=== PATIENT | male | born 1980 | race Hispanic/Latino ===

== ENCOUNTER → 2020-01-12 | Day surgery (SDC) | payer OTHER ==
[~2020-01-12] MED LIST: ETOMIDATE 2 MG/ML 10 ML INJ IV ONE; FENTANYL CITRATE/PF 100MCG/2 ML INJ ONE; GLUCAGON FOR INJ 1 MG VIAL ONE; HYOSCYAMINE 0.125 MG TAB ONE; MIDAZOLAM HCL 2 MG/2 ML VIAL ONE; PANTOPRAZOLE 40 MG 10ML VIAL ONE; PROPOFOL IV EMULSION 10 MG/ML 20 ML VIAL ONE
[2020-01-12 12:30] VITALS: BP 136/88
[2020-01-12 12:54] LABS: BASOPHILS % 0.4 % (0.0-1.0); EOSINOPHILS # (AUTO) 0.1 (0.0-0.4); EOSINOPHILS % 1.2 % (0.0-6.0); HEMATOCRIT 43.9 % (38.2-49.6); HEMOGLOBIN 14.1 g/dL (14.0-18.0); LYMPHOCYTES # (AUTO) 1.6 (1.0-3.2); LYMPHOCYTES % 19.3 % (18.0-39.1); MEAN CORPUSCULAR HEMOGLOBIN 27.6 pg (28-32); MEAN CORPUSCULAR HGB CONC 32.1 g/dL (31-35); MEAN CORPUSCULAR VOLUME 86.1 fL (81-99); MONOCYTES # (AUTO) 0.5 (0.2-0.8); MONOCYTES % 6.2 % (4.4-11.3); NEUTROPHILS # (AUTO) 6.1 (2.1-6.9); NEUTROPHILS % 72.4 % (38.7-80.0); PLATELET COUNT 225 x10e3/uL (140-360); RED CELL DISTRIBUTION WIDTH 12.9 % (11.7-14.4)
--- NOTE | 2020-01-12 12:58 | Operative Report ---
DATE OF PROCEDURE: 01/12/2020 SURGEON: Adarsh John MD PROCEDURES: EGD with biopsies and colonoscopy with polypectomy note. INDICATIONS FOR EGD: Dyspepsia. INDICATIONS FOR COLONOSCOPY: Rectal bleeding. MEDICATIONS: The patient was done under MAC, please see anesthesiologist's note. PROCEDURE IN DETAIL: With the patient in left lateral decubitus position, a flexible fiberoptic Olympus gastroscope was introduced into the esophagus under direct visualization without any difficulty. ? Grade 1 esophageal varices were noted in the distal esophagus without active bleeding or stigmata of recent hemorrhage. A minute tongue of velvety red mucosa was noted to extend proximally from the GE junction. Biopsies were obtained to rule out Glover. The scope was then advanced with ease into the stomach, traversing a small sliding hiatal hernia. Mucosa overlying the antrum and the body revealed some diffuse erythema, [id number] edema, and biopsies were obtained, and sent to stain for H. pylori. Pylorus was of normal contour and shape, it was intubated with ease and the scope was advanced all the way to the second portion of the duodenum. The scope was then withdrawn slowly, mucosa overlying the proximal second portion and the duodenal bulb grossly were within normal limits; biopsies were obtained to rule out sprue. The scope was then withdrawn back into the stomach and retroflexed, mucosa overlying the fundus and cardia appeared to be within normal limits. The scope was then straightened out, it was subsequently withdrawn. The patient tolerated the procedure well. IMPRESSION: 1. ? Grade 1 esophageal varices. 2. Rule out Glover esophagus. 3. Small sliding hiatal hernia. 4. Gastritis, biopsied, biopsies sent to stain for H. pylori. 5. Rule out sprue. PLAN: 1. Follow up histology. 2. Initiate Protonix 40 mg one p.o. q.a.m. a.c. DESCRIPTION OF PROCEDURE: The patient was then turned around after adequate lubrication of the anal canal, a flexible fiberoptic Olympus colonoscope was inserted into the rectum with ease and advanced all the way to the cecum. It was then withdrawn slowly, mucosa overlying the cecum and ascending colon appeared to be within normal limits. A minute polyp was removed per hot biopsy forceps from the distal transverse colon. The descending sigmoid and rectum grossly appeared to be within normal limits. The scope was then retroflexed into the distal rectum and moderate-sized internal hemorrhoids were noted, none of which was actively bleeding. The scope was then straightened out and there were some prominent veins ? rectal varices noted, but there was no active bleeding or stigmata of recent hemorrhage. The scope was then withdrawn. The patient tolerated the procedure well. IMPRESSION: 1. Transverse colon polyp, hot biopsied. 2. Internal hemorrhoids, none actively bleeding. PLAN: 1. Follow up histology. 2. Initiate high-fiber, low-fat diet. 3. Initiate high-fiber supplement. 4. Hydrocortisone suppository 25 mg b.i.d. x10 days and p.r.n. 5. The patient might benefit from a followup colonoscopy in 3 to 5 years. 6. Check CBC, CMP, and acute hepatitis panel. Adarsh John MD [facility] [place] /[id number]
[2020-01-12 13:16] LABS: ALANINE AMINOTRANSFERASE 40 IU/L (0-55); ALBUMIN 4.2 g/dL (3.5-5.0); ALBUMIN/GLOBULIN RATIO 1.3 (0.8-2.0); ALKALINE PHOSPHATASE 67 IU/L (40-150); ANION GAP 11.3 mmol/L (8-16); BLOOD UREA NITROGEN 11 mg/dL (7-26); BUN/CREATININE RATIO 11 (6-25); CALCIUM 9.2 mg/dL (8.4-10.2); CARBON DIOXIDE 26 mmol/L (22-29); CHLORIDE 103 mmol/L (98-107); CREATININE, SERUM 1.02 mg/dL (0.72-1.25); EST GLOMERULAR FILTRATION RATE > 60 ML/MIN (60-); GLUCOSE 101 mg/dL (74-118); POTASSIUM 4.3 mmol/L (3.5-5.1); SODIUM 136 mmol/L (136-145)
== END | disposition home or self-care (01) ==
LOC: OR 08:02
PROVIDERS: ATTEND Internal Medicine Gastroenterology
DX: K62.5 Hemorrhage of anus and rectum (principal); K63.5 Polyp of colon; K29.70 Gastritis, unspecified, without bleeding; K44.9 Diaphragmatic hernia without obstruction or gangrene; K22.8 Other specified diseases of esophagus; K64.8 Other hemorrhoids; R03.0 Elevated blood-pressure reading, without diagnosis of hypertension; F17.210 Nicotine dependence, cigarettes, uncomplicated; Z01.810 Encounter for preprocedural cardiovascular examination; Z01.812 Encounter for preprocedural laboratory examination; Z11.59 Encounter for screening for other viral diseases; Z68.37 Body mass index [BMI] 37.0-37.9, adult
CPT/HCPCS: 36415; 43239; 45384; 80053; 85025; 93005; C9113; J1610; J2250; J2704; J3010; U0002; 45378

== ENCOUNTER 2020-12-02 11:58 | Emergency (ER) | payer OTHER ==
[~2020-12-02] VITALS: Ht 177.8 cm; Wt 117.9 kg
[2020-12-02] MEDS ORDERED: TYLENOL # 31 EA PO (13:25)
== END 2020-12-02 13:32 | disposition home or self-care (01) ==
LOC: FSED 12:07
DX: M54.5 Low back pain (principal); S83.92XA Sprain of unspecified site of left knee, initial encounter; M25.561 Pain in right knee; X50.1XXA Overexertion from prolonged static or awkward postures, initial encounter
CPT/HCPCS: 72100; 99283

== ENCOUNTER 2021-05-30 15:35 | Emergency (ER) | payer OTHER ==
[~2021-05-30] VITALS: Ht 177.8 cm; Wt 117.1 kg
[~2021-05-30 15:35] MED LIST changes: -ETOMIDATE 2 MG/ML 10 ML INJ IV ONE; -FENTANYL CITRATE/PF 100MCG/2 ML INJ ONE; -GLUCAGON FOR INJ 1 MG VIAL ONE; -HYOSCYAMINE 0.125 MG TAB ONE; -MIDAZOLAM HCL 2 MG/2 ML VIAL ONE; -PANTOPRAZOLE 40 MG 10ML VIAL ONE; -PROPOFOL IV EMULSION 10 MG/ML 20 ML VIAL ONE; +TYLENOL # 31 EA PO
[2021-05-30] MEDS ORDERED: IBUPROFEN 600 MG TAB ONE (17:07)
[2021-05-30] MEDS ORDERED: IBUPROFEN 200 MG TAB ONE ×2 (17:07→17:08)
[2021-05-30] MEDS ORDERED: PREDNISONE20 MG PO (17:43)
[2021-05-30] MEDS ORDERED: VENTOLIN HFA18 GM INH (17:43)
[2021-05-30] MEDS ORDERED: AZITHROMYCIN250 MG PO (17:43)
== END 2021-05-30 18:07 | disposition home or self-care (01) ==
LOC: FSED 16:55
DX: B34.9 Viral infection, unspecified (principal)
CPT/HCPCS: 83518; 87400; 99283

== ENCOUNTER 2023-06-24 14:08 | Observation (INO) | payer OTHER ==
[~2023-06-24] VITALS: Ht 177.8 cm; Wt 117.9 kg
[~2023-06-24 14:08] MED LIST changes: +AZITHROMYCIN250 MG PO; +PREDNISONE20 MG PO; +VENTOLIN HFA18 GM INH
[2023-06-24] MEDS ORDERED: LABETALOL HCL 5 MG/ML 20ML VIAL IV STA (14:40)
[2023-06-24] MEDS ORDERED: ONDANSETRON HCL INJ 2MG/ML 2ML 2 MG/ML VIAL IV STA (14:40)
[2023-06-24] MEDS ORDERED: ACETAMINOPHEN 325 MG TAB PO ONE (14:45)
[2023-06-24] MEDS ORDERED: ASPIRIN 81 MG CHEW TAB PO ONE (14:45)
[2023-06-24] MEDS ORDERED: FAMOTIDINE 20 MG/2 ML VIAL IV ONE (14:45)
[2023-06-24] MEDS ORDERED: ONDANSETRON HCL INJ 2MG/ML 2ML 2 MG/ML VIAL ONE (15:00)
[2023-06-24] MEDS ORDERED: ASPIRIN 325 MG TAB ONE (15:00)
[2023-06-24] MEDS ORDERED: NITROGLYCERIN 2% OINT 1 GM PKT ONE (15:01)
[2023-06-24] MEDS ORDERED: ASPIRIN 81 MG CHEW TAB ONE (15:14)
[2023-06-24] MEDS: NITROGLYCERIN 2% OINT 1 GM PKT TOP ONE ×2 (15:16→15:24)
[2023-06-24] MEDS ORDERED: METOPROLOL TARTRATE 50 MG TAB PO SCH (15:30)
[2023-06-24] MEDS ORDERED: FAMOTIDINE 20 MG TAB PO SCH (15:30)
[2023-06-24] MEDS ORDERED: SODIUM CHLORIDE FLUSH 10 ML SYR INJ PRN (15:30)
[2023-06-24] MEDS ORDERED: METOPROLOL TARTRATE 50 MG TAB ONE (16:04)
[2023-06-24 19:08] VITALS: BP 146/91; PULSE 83; RESP 20; TEMP 98; O2SAT 99
[2023-06-24] MEDS ORDERED: ACETAMINOPHEN 325 MG TAB PO PRN (19:30)
[2023-06-24] MEDS ORDERED: ONDANSETRON HCL INJ 2MG/ML 2ML 2 MG/ML VIAL IV PRN (19:30)
[2023-06-24] MEDS ORDERED: ZOLPIDEM TARTRATE 5 MG TAB PO PRN (19:30)
[2023-06-24] MEDS ORDERED: ENALAPRILAT IV INJ 1.25 MG/ML VIAL IV PRN (19:30)
[2023-06-24] MEDS ORDERED: DIPHENHYDRAMINE HCL INJ 50 MG/ML VIAL IV PRN (19:30)
[2023-06-24] MEDS ORDERED: HYDRALAZINE HCL 20 MG/ML VIAL IV PRN (20:15)
[2023-06-24] MEDS ORDERED: MELATONIN 3 MG TAB PO SCH (21:00)
[2023-06-24] MEDS: PANTOPRAZOLE SOD 40 MG TABEC PO SCH (21:50)
[2023-06-24] MEDS ORDERED: VENLAFAXINE H37.5 M1 PO (21:57)
[2023-06-24] MEDS ORDERED: ALPRAZOLAM1 MG PO (21:57)
[2023-06-24 22:05] VITALS: BP 146/91; PULSE 83; RESP 20; TEMP 98; O2SAT 99
[2023-06-24 22:18] VITALS: BP 146/91; PULSE 83; RESP 20; TEMP 98; O2SAT 99
[2023-06-25] VITALS: BP 147/91; PULSE 87; RESP 20; TEMP 98.6; O2SAT 100
[2023-06-25 00:30] LABS: OPIATES SCREEN,URINE NEGATIVE (NEGATIVE)
[2023-06-25 00:31] LABS: AMPHETAMINES SCREEN,URINE NEGATIVE (NEGATIVE); BENZODIAZEPINES SCREEN,URINE POSITIVE (NEGATIVE); CANNABINOIDS SCREEN,URINE NEGATIVE (NEGATIVE); METHADONE SCREEN, URINE NEGATIVE (NEGATIVE); PHENCYCLIDINE SCREEN,URINE NEGATIVE (NEGATIVE)
[2023-06-25 00:33] LABS: CREATINE KINASE 40 IU/L (30-200)
[2023-06-25 00:43] LABS: TROPONIN I < 0.001 ng/mL (0-0.300)
[2023-06-25 04:00] VITALS: BP 138/95; PULSE 77; RESP 20; TEMP 98.6; O2SAT 99
[2023-06-25 05:58] LABS: BASOPHILS % 0.4 % (0.0-1.0); EOSINOPHILS # (AUTO) 0.5 (0.0-0.4); EOSINOPHILS % 4.5 % (0.0-6.0); HEMATOCRIT 39.3 % (38.2-49.6); HEMOGLOBIN 12.7 g/dL (14.0-18.0); LYMPHOCYTES # (AUTO) 1.9 (1.0-3.2); LYMPHOCYTES % 17.8 % (18.0-39.1); MEAN CORPUSCULAR HEMOGLOBIN 29.1 pg (28-32); MEAN CORPUSCULAR HGB CONC 32.3 g/dL (31-35); MEAN CORPUSCULAR VOLUME 90.1 fL (81-99); MONOCYTES % 9.4 % (4.4-11.3); NEUTROPHILS # (AUTO) 7.1 (2.1-6.9); NEUTROPHILS % 67.3 % (38.7-80.0); PLATELET COUNT 159 x10e3/uL (140-360); RED BLOOD COUNT 4.36 x10e6/uL (4.3-5.7); RED CELL DISTRIBUTION WIDTH 12.9 % (11.7-14.4); WHITE BLOOD COUNT 10.53 x10e3/uL (4.8-10.8)
[2023-06-25 06:38] LABS: ALBUMIN 3.5 g/dL (3.5-5.0); ALBUMIN/GLOBULIN RATIO 0.9 (0.8-2.0); ANION GAP 15.8 mmol/L (8-16); BILIRUBIN,TOTAL 0.7 mg/dL (0.2-1.2); POTASSIUM 3.8 mmol/L (3.5-5.1); TOTAL PROTEIN 7.2 g/dL (6.5-8.1)
[2023-06-25 07:00] LABS: THYROID STIMULATING HORMONE 1.797 uIU/mL (0.350-4.940)
[2023-06-25 07:14] LABS: CHOL/HDL RATIO 5.1 (3.9-4.7)
[2023-06-25 08:00] VITALS: BP 148/99; PULSE 80; RESP 19; TEMP 98.1; O2SAT 100
[2023-06-25] MEDS: PANTOPRAZOLE SOD 40 MG TABEC PO SCH ×2 (08:51→17:03)
[2023-06-25 09:00] VITALS: BP 149/88; PULSE 80; RESP 19; TEMP 98.1; O2SAT 100
[2023-06-25] MEDS ORDERED: METOPROLOL TARTRATE 50 MG TAB PO SCH (09:00)
[2023-06-25] MEDS ORDERED: POLYETHYLENE GLYCOL 3350 17 GM PACK PO SCH (09:00)
[2023-06-25 15:24] LABS: TROPONIN I 0.012 ng/mL (0-0.300)
[2023-06-25 16:00] VITALS: BP 137/78; PULSE 82; RESP 19; TEMP 98.3; O2SAT 98
[2023-06-25] MEDS ORDERED: PANTOPRAZOLE SO40 MG PO (16:45)
== END 2023-06-25 17:46 | disposition home or self-care (01) ==
LOC: FSED 14:10 → UNDOADMOB 15:35 → ERHOLD 15:35 → UNDOADMOB 16:52 → MED/SURG 19:25
PROVIDERS: ADMIT Internal Medicine; ATTEND Internal Medicine
DX: R07.89 Other chest pain (principal); K21.00 Gastro-esophageal reflux disease with esophagitis, without bleeding; K29.70 Gastritis, unspecified, without bleeding; R06.02 Shortness of breath; R03.0 Elevated blood-pressure reading, without diagnosis of hypertension; R94.31 Abnormal electrocardiogram [ECG] [EKG]; K44.9 Diaphragmatic hernia without obstruction or gangrene; F17.200 Nicotine dependence, unspecified, uncomplicated; F41.9 Anxiety disorder, unspecified; F19.10 Other psychoactive substance abuse, uncomplicated; F13.90 Sedative, hypnotic, or anxiolytic use, unspecified, uncomplicated; E66.9 Obesity, unspecified; Z68.37 Body mass index [BMI] 37.0-37.9, adult; Z11.52 Encounter for screening for COVID-19; Z79.899 Other long term (current) drug therapy
CPT/HCPCS: 0223U; 36415 ×2; 71046; 80053 ×2; 80061; 80307; 82550 ×2; 82553; 83036; 84443; 84484 ×2; 85025 ×2; 93005; 93306; 96374; 96375; 99252; 99284; G0378 ×2; J2405; J3490; S0164 ×2